=== PATIENT | male | born 2000 | race African-American/Black ===

== ENCOUNTER 2025-06-12 13:03 | Emergency (ER) | payer MEDICAID ==
[~2025-06-12] VITALS: Ht 175.3 cm; Wt 84.1 kg
[2025-06-12 13:06] VITALS: BP 104/63; PULSE 68; RESP 18; TEMP 98.2; O2SAT 99
[2025-06-12] MEDS ORDERED: AQUAOINT TD (13:37)
[2025-06-12] MEDS ORDERED: ACET-2247 PO (13:37)
[2025-06-12] MEDS ORDERED: IBUP-1492 PO (13:37)
== END 2025-06-12 14:00 | disposition home or self-care (01) ==
LOC: EMS 13:09
DX: M79.641 Pain in right hand (principal); Z79.899 Other long term (current) drug therapy
CPT/HCPCS: 99282; Z7502